=== PATIENT | male | born 1955 | race Caucasian/White ===

== ENCOUNTER 2018-12-02 07:18 | Outpatient (CLI) | payer BC, SELFPAY ==
[2018-12-02 08:40] LABS: Cholesterol 256 mg/dL (50-200); HDL Cholesterol 68 mg/dL (40-60); LDL CHOLESTEROL 171 mg/dL (<100); Triglyceride 54 mg/dL (30-150)
== END 2018-12-02 07:38 ==
PROVIDERS: PCP Family Medicine; Visit Provider Family Medicine
DX: E78.5 Hyperlipidemia, unspecified (principal)
CPT/HCPCS: 36415; 80061; 83721

== ENCOUNTER 2018-12-18 00:29 | Outpatient (CLI) | payer BC, SELFPAY ==
--- NOTE | 2018-12-18 11:42 | DI.MRI_ITS ---
SYMPTOMS/DIAGNOSIS: INJURY OF MENISCUS OF RIGHT KNEE, S83.8X1A, ICE SKATING INJURY 09/2018, ? MENISCAL TEAR MRI OF THE RIGHT KNEE: Routine noncontrast examination was performed. There is a tear of the body and posterior horn of the medial meniscus. The lateral meniscus is intact. The anterior cruciate, posterior cruciate, medial and lateral collateral ligaments, extensor mechanism and medial and lateral retinaculum are intact, as is the popliteus tendon. There is no focal fluid collection seen in the soft tissues. The articular cartilage is well maintained. There is marrow edema seen in the lateral aspect of the medial tibial plateau. Marrow signal is otherwise within normal limits. No evidence of an occult fracture or avascular necrosis is identified. There is a small amount of fluid in the joint space. The muscles show normal signal and size. IMPRESSION: 1. Tear of the body and posterior horn of the medial meniscus. 2. Contusion involving the medial tibial plateau.
== END 2018-12-18 00:49 ==
PROVIDERS: PCP Family Medicine; Visit Provider Specialist
DX: M25.561 Pain in right knee (principal); S83.8X1A Sprain of other specified parts of right knee, initial encounter; S83.241A Other tear of medial meniscus, current injury, right knee, initial encounter
CPT/HCPCS: 73721

== ENCOUNTER 2019-08-05 11:54 | Emergency (ER) | payer MEDICARE, SELFPAY ==
[2019-08-05 12:01] VITALS: BP 150/87; PULSE 65; RESP 18; TEMP 36.6; O2SAT 93
--- NOTE | 2019-08-05 12:27 | DI.RAD_ITS ---
EXAM: XR HAND LT COMPLETE INDICATION: pain, injury r/o FB or fx. COMPARISON: No exams were available for comparison TECHNIQUE: 2D digital imaging was performed. FINDINGS: No fracture, dislocation or radiopaque foreign body is seen. IMPRESSION: Negative left hand.
--- NOTE | 2019-08-05 12:28 | W.ED.GENAD ---
Discharge Plan Disposition Patient Disposition: HOME Condition: Good Discharge Details Chief Complaint: Laceration Clinical Impression: Hand laceration Primary Care Provider: Scout Padilla ED Provider: Allison Cage Home Meds and New Rx's Prescriptions: No Action glucosamine sulfate 2KCl 1,000 MG capsule 1,000 mg PO DAILY RF: 0 Saw [place] Extract (w-zinc) 1 EACH capsule 1 ea PO DAILY RF: 0 tamsulosin 0.4 MG capsule 0.4 mg PO DAILY Qty: 30 RF: 6 Dany Multivitamin For Men 1 EACH tablet 1 ea PO DAILY RF: 0 Discharge Instructions Instructions: Laceration (ED) Additional Instructions: Leave initial dressing in place for the next 24 hours then you may remove and begin wound care. Wash area with soap and water gently once or twice daily. Pat dry completely after washing or air dry. Apply topical antibiotic ointment over the wound. Change dressings once or twice daily. Observe for any signs of infection. Suture removal in 10 to 14 days. Return for any signs of infection, pain, worsening or concerns sooner if needed. Follow-up with orthopedic doctor for reevaluation if any numbness is persistent as discussed. Referrals: Carlos Ricketts MD [ [facility] STAFF PHYSICIAN] - Medical Decision Making 64-year-old man presents after his hand got stuck in a external grinder tender. Patient presents with a dorsal hand laceration approximately 4 cm in length which is jagged and irregular mildly contaminated. Patient's injury occurred prior to arrival. Tetanus in 2018 is up-to-date. Patient's bleeding is controlled. X-ray ordered to rule out bony involvement or foreign body which is retained. Patient does have a mild lack of two-point discrimination over the dorsal aspect of the hand between the webspace of the first and second finger. No loss of two-point discrimination through the digits. Concern of possible nerve injury at the site. Full range of motion. Patient anesthetized locally with lidocaine and bupivacaine 0.5%. Wound irrigated. Wound edges revitalized. 7 sutures to close the wound. No persistent bleeding. Wound edges well approximated. Counseled regarding appropriate wound management and care. The patient was stable and requested discharge. Prior to discharge, my usual and customary return precautions were reviewed with the patient - this included follow-up instructions and reasons to return to the Emergency Department if conditions worsens, does not improve as expected, or other new concerns arise. HPI General Date/Time Provider Initiated Documentation: 08/05/19 12:20. HPI Narrative: 64-year-old right-handed man presents for left hand laceration. Patient cut his hand in a glove caught in a external grinder tender and ultimately sustained a dorsal hand laceration. Patient reports pain at the site. Tetanus is unknown. Denies numbness, tingling or weakness associated. Full range of motion of the hand. Bleeding initially now controlled. Tetanus is unknown. No other sites of pain or concerns at this time. injury occurred prior to arrival Related Data Home Medications Medication Instructions Recorded Confirmed glucosamine sulfate 2KCl 1,000 mg PO DAILY 02/04/14 08/05/19 Saw [place] Extract (w-zinc) 1 ea PO DAILY 05/17/15 08/05/19 [id number] 1 ea PO DAILY tab-cap 09/23/17 08/05/19 [Dany Multi For Men Tablet] tamsulosin 0.4 mg PO DAILY #30 tab-cap 09/23/17 08/05/19 Previous Rx's Medication Instructions Recorded tamsulosin 0.4 mg PO DAILY #30 tab-cap 09/23/17 Allergies Allergy/AdvReac Type Severity Reaction Status Date / Time cats Allergy runny Uncoded 08/05/19 12:03 eyes, congestion General Stated Complaint: Laceration AKBAR: 3 Review of Systems Review of Systems ROS Unobtainable: All systems reviewed & are unremarkable except as noted in HPI and below Musculoskeletal Musculoskeletal: Denies deformity, Denies limited range of motion, Denies numbness and Denies tingling Integumentary/Breasts Skin/Breast: Reports wounds Neurologic Neurologic: Denies numbness and Denies tingling [facility] Medical History BPH (benign prostatic hypertrophy) Surgical History Appendectomy Arthroplasty of knee (01/04/16) Oj Ramirez MD Left knee; Arthroscopic partial medial menisectomy; chrondoplasty of the medial femoral condyle and femoral rochlea; Excision of a parameniscal cyst; Lysis of adhesions in the suprapatellar pouch. 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 Well hydrated. Alert and alert. MUSCULOSKELETAL: Normal Gait. FROM of all extremities. Mild pain with palpation of the hand overlying laceration on the dorsal hand. Flexion extension intact in all digits. No obvious tendon rupture. Distal neurovascularly intact through the hand. SKIN: Normal. Dry. No rashes. Laceration to the dorsal aspect of the hand approximately 4 cm which is jagged and irregular with mild avulsion of tissue. NEURO: Alert and awake. Speech clear. PSYCH: Normal affect. Cooperative. Course Vital Signs Vital signs: Vital Signs Temperature 36.6 C 08/05/19 12:01 Pulse 65 08/05/19 12:01 Respiratory Rate 18 08/05/19 12:01 Blood Pressure 150/87 H 08/05/19 12:01 Pulse Oximetry 93 L 08/05/19 12:01 Temperature 36.6 C 08/05/19 12:01 Temperature Source Temporal Artery Scan 08/05/19 12:01 Pulse 65 08/05/19 12:01 Respiratory Rate 18 08/05/19 12:01 Blood Pressure 150/87 H 08/05/19 12:01 Blood Pressure Position Sitting 08/05/19 12:01 Pulse Oximetry 93 L 08/05/19 12:01 Oxygen Delivery Method Room Air 08/05/19 12:01 Oxygen Flow Rate 0 08/05/19 12:01 Pain Level 5 08/05/19 12:01 Procedures Laceration Laceration 1: Site: hand Side (If applicable): left Size (cm): 4 Description: irregular and contaminated Depth: simple, single layer Local Anesthetic: Lidocaine 1% and Bupivicaine 0.5% Amount of anesthesia used (mL): 5 Pre-repair: wound explored, irrigated extensively and wound margins revised Skin layer closed with: other (prolene) Size (cm): 4-0 Number of sutures: 7 Technique: simple, interrupted
== END 2019-08-05 14:35 | disposition home or self-care (01) ==
PROVIDERS: Emergency Provider Physician Assistant; PCP Family Medicine
DX: S61.412A Laceration without foreign body of left hand, initial encounter (principal); W31.81XA Contact with recreational machinery, initial encounter
CPT/HCPCS: 12002; 99283; 73130; 99282

== ENCOUNTER 2019-08-19 08:49 | Emergency (ER) | payer MEDICARE, SELFPAY ==
--- NOTE | 2019-08-19 08:52 | W.ED.GENAD ---
Discharge Plan Disposition Patient Disposition: HOME Condition: Stable Discharge Details Chief Complaint: SutureRem Clinical Impression: Visit for suture removal Primary Care Provider: Scout Padilla ED Provider: Bay Fletcher Home Meds and New Rx's Prescriptions: Continued glucosamine sulfate 2KCl 1,000 MG capsule 1,000 mg PO DAILY RF: 0 Saw [place] Extract (w-zinc) 1 EACH capsule 1 ea PO DAILY RF: 0 tamsulosin 0.4 MG capsule 0.4 mg PO DAILY Qty: 30 RF: 6 Dany Multivitamin For Men 1 EACH tablet 1 ea PO DAILY RF: 0 Discharge Instructions Instructions: Stitches Removal (ED) Additional Instructions: Return for any acute concern. Continue your regular medications. May resume normal routine and activities. Medical Decision Making Patient presents for uneventful suture removal. The left hand is healing well. His exam is otherwise unremarkable. Sutures removed and patient stable for discharge. HPI General Mode of arrival: ambulatory. Date/Time Provider Initiated Documentation: 08/19/19 08:49. Limitations to Documentation: no limitations. Information obtained by: patient. History of Present Illness 64 year old M presents to the emergency department with the chief complaint of Suture removal, no other complaint, Related Data Home Medications Medication Instructions Recorded Confirmed glucosamine sulfate 2KCl 1,000 mg PO DAILY 02/04/14 08/05/19 Saw [place] Extract (w-zinc) 1 ea PO DAILY 05/17/15 08/05/19 Dany Multivitamin For Men 1 ea PO DAILY tab-cap 09/23/17 08/05/19 tamsulosin 0.4 mg PO DAILY #30 tab-cap 09/23/17 08/05/19 Previous Rx's Medication Instructions Recorded tamsulosin 0.4 mg PO DAILY #30 tab-cap 09/23/17 Allergies Allergy/AdvReac Type Severity Reaction Status Date / Time cats Allergy runny Uncoded 08/05/19 12:03 eyes, congestion General AKBAR: 3 PFSH Social History Smoking/Tobacco Use Status: Never Alcohol Intake: current Alcohol Intake frequency: a few times a month Alcohol type: wine Drug use: Never Adopted: No Household members: spouse Housing: house Number of Children: 5 number of grandchildren: 6 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 Full range of motion, sensation intact distally.. No erythema or discharge from the wound.
[2019-08-19 09:01] VITALS: BP 100/68; PULSE 60; RESP 15; TEMP 36.8; O2SAT 98
== END 2019-08-19 09:01 | disposition home or self-care (01) ==
PROVIDERS: Emergency Provider Emergency Medicine; PCP Family Medicine
DX: S61.412D Laceration without foreign body of left hand, subsequent encounter (principal); W45.8XXD Other foreign body or object entering through skin, subsequent encounter; Z48.02 Encounter for removal of sutures

== ENCOUNTER 2020-11-03 02:51 | Outpatient (CLI) | payer MEDICARE, SELFPAY ==
[2020-11-03 09:02] LABS: Abs Immature Grans 0.01 10^3/uL (0.0-0.06); Absolute Basophil Count 0.01 10^3/uL (0.0-0.2); Absolute Eosinophil Count 0.07 10^3/uL (0.0-0.7); Absolute Lymphocyte Count 1.77 10^3/uL (1.2-3.4); Absolute Monocyte Count 0.57 10^3/uL (0.1-0.8); Basophils % 0.2; Eosinophils % 1.3; HCT 47.8 % (40.0-50.0); HGB 15.9 g/dL (13.5-17.5); Immature Grans % 0.2; MCH 31.6 pg (27.0-33.0); MCHC 33.3 % (32.0-36.0); MPV 9.8 fL (8.0-11.0); Monocytes % 10.3; Nucleated RBC 0 %; Platelet Count 179 10^3/uL (130-400); RBC 5.03 10^6/uL (4.36-5.78); RDW 12.3 % (11.8-14.1); RDW-SD 43.1 fL; WBC 5.53 10^3/uL (4.4-10.8)
[2020-11-03 09:50] LABS: ALT 45 U/L (16-63); AST 24 U/L (15-37); Albumin 3.8 g/dL (3.4-5.0); Alkaline Phosphatase 64 U/L (46-116); Anion Gap 7.9 mmol/L (3-11); BUN 20 mg/dL (7-18); Bilirubin, Total 0.6 mg/dL (0.2-1.0); CO2 27.1 mmol/L (21.0-32.0); CREATININE 0.84 mg/dL (0.70-1.30); Calcium 8.6 mg/dL (8.5-10.1); Calculated LDL 193 mg/dL (<100); Chloride 104 mmol/L (98-107); Cholesterol 268 mg/dL (<200); Glucose 104 mg/dL (74-106); HDL Cholesterol 66 mg/dL (40-60); Potassium 4.4 mmol/L (3.5-5.1); Sodium 139 mmol/L (136-145); Total Protein 7.4 g/dL (6.4-8.2); Triglyceride 49 mg/dL (<150)
== END 2020-11-03 03:11 ==
PROVIDERS: PCP Family Medicine; Visit Provider Family Medicine
DX: E78.5 Hyperlipidemia, unspecified (principal); G47.33 Obstructive sleep apnea (adult) (pediatric)
CPT/HCPCS: 36415; 80053; 80061; 85025

== ENCOUNTER 2023-03-13 00:25 | Outpatient (CLI) | payer MEDICARE, SELFPAY ==
--- NOTE | 2023-03-13 07:00 | DI.RAD_ITS ---
Exam(s) XR KNEE RT 3V AP,LAT,DADA EXAM: XR KNEE RT 3V AP,LAT,DADA CLINICAL HISTORY: Worsening arthritis,m17.11. TECHNIQUE: 2D digital imaging was performed. Three views. COMPARISON: No exams were available for comparison FINDINGS: BONES: No acute fracture is present. No bony destructive lesion is seen. JOINTS: Severe narrowing medial femoral tibial joint space. Periarticular spurring. Mild lateral ren bluxation of the tibia with respect to the distal femur. Spurring at the articular aspect of the pat li. Question of a small joint effusion SOFT TISSUE: Normal. IMPRESSION: Severe degenerative changes medial femoral tibial joint. DATA REPOSITORY: RADIATION DOSE DELIVERED:
== END 2023-03-13 00:45 ==
PROVIDERS: PCP Family Medicine; Visit Provider Family Medicine
DX: M17.11 Unilateral primary osteoarthritis, right knee (principal)
CPT/HCPCS: 73562

== ENCOUNTER 2023-03-22 01:46 | Outpatient (CLI) | payer MEDICARE, SELFPAY ==
[2023-03-22 09:37] LABS: ALT 40 U/L (16-63); AST 33 U/L (15-37); Albumin 3.6 g/dL (3.4-5.0); Alkaline Phosphatase 61 U/L (46-116); Anion Gap 6.5 mmol/L (3-11); BUN 16 mg/dL (7-18); Bilirubin, Total 0.6 mg/dL (0.2-1.0); CO2 28.5 mmol/L (21.0-32.0); CREATININE 0.7 mg/dL (0.70-1.30); Calcium 8.5 mg/dL (8.5-10.1); Calculated LDL 165 mg/dL (<100); Chloride 104 mmol/L (98-107); Cholesterol 236 mg/dL (<200); Estimated GFR 100.37 (mL/min/1.73m2); Glucose 109 mg/dL (74-106); HDL Cholesterol 66 mg/dL (40-60); Potassium 4.1 mmol/L (3.5-5.1); Sodium 139 mmol/L (136-145); Total Protein 7.6 g/dL (6.4-8.2); Triglyceride 29 mg/dL (<150)
== END 2023-03-22 01:47 | disposition home or self-care (01) ==
LOC: LBO 01:46
PROVIDERS: PCP Family Medicine; Visit Provider Family Medicine
DX: E78.5 Hyperlipidemia, unspecified (principal)
CPT/HCPCS: 36415; 80053; 80061

== ENCOUNTER → 2023-06-24 09:24 | Outpatient (BNVA) | payer MEDICARE, SELFPAY | PROVIDERS: PCP Family Medicine; Referring Provider Family Medicine; Visit Provider Student in an Organized Health Care Education/Training Program | DX: M17.11 Unilateral primary osteoarthritis, right knee (principal) | CPT/HCPCS: 99202 ==

== ENCOUNTER → 2024-01-27 08:47 | Outpatient (BNVA) | payer MEDICARE, SELFPAY | PROVIDERS: PCP Nurse Practitioner Family; Referring Provider Family Medicine; Visit Provider Student in an Organized Health Care Education/Training Program | DX: M16.12 Unilateral primary osteoarthritis, left hip (principal) | CPT/HCPCS: 20611; J1040 ==

== ENCOUNTER 2024-01-29 11:51 | Outpatient (REF) | payer MEDICARE, SELFPAY ==
[2024-01-29 21:30] LABS: ALT 42 U/L (16-63); AST 26 U/L (15-37); Albumin 3.8 g/dL (3.4-5.0); Alkaline Phosphatase 67 U/L (46-116); Anion Gap 9.5 mmol/L (3-11); BUN 26 mg/dL (7-18); Bilirubin, Total 0.6 mg/dL (0.2-1.0); CO2 27.5 mmol/L (21.0-32.0); CREATININE 0.7 mg/dL (0.70-1.30); Calcium 8.8 mg/dL (8.5-10.1); Chloride 102 mmol/L (98-107); Estimated GFR 99.74 (mL/min/1.73m2); Glucose 113 mg/dL (74-106); Potassium 3.9 mmol/L (3.5-5.1); Sodium 139 mmol/L (136-145); Total Protein 7.6 g/dL (6.4-8.2)
[2024-01-29 21:37] LABS: Hemoglobin A1C 5.9 % (<5.7)
[2024-01-29 21:58] LABS: Calculated LDL 169 mg/dL (<100); Cholesterol 264 mg/dL (<200); HDL Cholesterol 70 mg/dL (40-60); Triglyceride 127 mg/dL (<150)
[2024-01-30 17:32] LABS: PSA, Screening 5.8 ng/mL (<=4.5)
== END 2024-01-29 11:52 | disposition home or self-care (01) ==
LOC: LBN 11:51
PROVIDERS: PCP Nurse Practitioner Family; Visit Provider Nurse Practitioner Family
DX: E78.5 Hyperlipidemia, unspecified (principal); R73.9 Hyperglycemia, unspecified; N40.0 Benign prostatic hyperplasia without lower urinary tract symptoms
CPT/HCPCS: 80053; 80061; 84153; 83036

== ENCOUNTER 2024-02-04 04:49 | Outpatient (CLI) | payer MEDICARE, SELFPAY ==
[2024-02-07 10:16] LABS: Apolipoprotein A1, S 187 mg/dL (>=120); Apolipoprotein B, S 135 mg/dL (See Comment); Apolipoprotein B/A 1 ratio 0.7 (See Comment)
== END 2024-02-04 04:50 | disposition home or self-care (01) ==
LOC: LOS 04:49
PROVIDERS: PCP Nurse Practitioner Family; Visit Provider Nurse Practitioner Family
DX: E78.5 Hyperlipidemia, unspecified (principal)
CPT/HCPCS: 36415; 80061; 82172; 82664

== ENCOUNTER 2024-02-12 08:50 | Outpatient (CLI) | payer MEDICARE, SELFPAY ==
[2024-02-18 08:42] LABS: Apolipoprotein B, Serum 133 mg/dL; Beta VLDL Cholesterol Not Detected mg/dL (<15); Beta VLDL Triglycerides Not Detected mg/dL (<15); Cholesterol, Total, CDC 265 mg/dL; Chylomicron Cholesterol Not Detected; Chylomicron Triglycerides Not Detected; HDL Cholesterol, CDC 60 mg/dL (>=40); LDL Cholesterol 183 mg/dL; LDL Triglycerides 24 mg/dL (<=50); Lp(a) Cholesterol 13 mg/dL (<5); LpX Not detected; Triglycerides, CDC 55 mg/dL; VLDL Cholesterol 9 mg/dL (<30); VLDL Triglycerides 20 mg/dL (<120)
== END 2024-02-12 08:51 | disposition home or self-care (01) ==
LOC: LBO 08:57
PROVIDERS: PCP Nurse Practitioner Family; Visit Provider Nurse Practitioner Family
DX: E78.5 Hyperlipidemia, unspecified (principal)
CPT/HCPCS: 80061; 82172; 82664

== ENCOUNTER → 2024-03-03 02:19 | Outpatient (CLI) | payer MEDICARE, SELFPAY ==
--- NOTE | 2024-03-03 08:00 | DI.MRI_ITS ---
Exam(s) MR LOWER JOINT LT WO EXAM: MR LOWER JOINT LT WO CLINICAL HISTORY: L HIP PAIN,OA LT HIP, M16.12 TECHNIQUE: Multiplanar multisequence MRI of Pelvis was performed COMPARISON: CR HIP from 11/25/2023 FINDINGS: Bones: There is no fracture or contusion pattern. There are severe degenerative changes of the left hip. There is high signal the superior left femoral head is well as adjacent acetabulum. There is degenerative edema on both sides of the joint. There is severe cartilage thinning, extending down to bone. There is slight flattening of the superior femoral head. A joint effusion is present. There are moderate degenerative changes of the right hip. Few small subchondral cysts are noted in th e acetabulum. Degenerative changes are noted in the acetabulum and labrum. No joint effusion. Mild degenerative changes are seen in the SI joints and pubic symphysis. Musculotendinous structures: Musculotendinous structures demonstrate no abnormality. Intrapelvic structures: Enlarged prostate. Urinary bladder shows mild wall thickening as well as trab eculation. IMPRESSION: Severe degenerative changes of the left hip, with marked cartilage thinning extending down to involvi ng underlying bone as well as marked small acetabular spurring. Slight flattening of the femoral head . Moderate degenerative changes of the right hip. DATA REPOSITORY:
== END ==
PROVIDERS: PCP Nurse Practitioner Family; Visit Provider Student in an Organized Health Care Education/Training Program
DX: M16.12 Unilateral primary osteoarthritis, left hip (principal)
CPT/HCPCS: 73721

== ENCOUNTER 2024-04-14 04:59 | Outpatient (CLI) | payer MEDICARE, SELFPAY ==
[2024-04-14 11:28] LABS: MCH 32.3 pg (27.0-33.0); MCHC 34.1 % (32.0-36.0); MCV 95 fL (80-95); MPV 9.6 fL (8.0-11.0); Platelet Count 179 10^3/uL (130-400); RBC 4.65 10^6/uL (4.36-5.78); RDW 12.5 % (11.8-14.1); RDW-SD 43.5 fL; WBC 7.31 10^3/uL (4.4-10.8)
[2024-04-14 11:57] LABS: Anion Gap 8.6 mmol/L (3-11); BUN 17 mg/dL (7-18); CO2 28.4 mmol/L (21.0-32.0); CREATININE 0.8 mg/dL (0.70-1.30); Chloride 102 mmol/L (98-107); Glucose 112 mg/dL (74-106); Potassium 4.2 mmol/L (3.5-5.1); Sodium 139 mmol/L (136-145)
== END 2024-04-14 05:00 | disposition home or self-care (01) ==
LOC: LBO 04:59
PROVIDERS: PCP Nurse Practitioner Family; Visit Provider Student in an Organized Health Care Education/Training Program
DX: Z01.818 Encounter for other preprocedural examination; M16.12 Unilateral primary osteoarthritis, left hip
CPT/HCPCS: 36415; 80048; 85027; 72170

== ENCOUNTER 2024-04-14 13:53 | Outpatient (CLI) | payer MEDICARE, SELFPAY ==
--- NOTE | 2024-04-14 10:49 | DI.RAD_ITS ---
Exam(s) XR PELVIS AP EXAM: XR PELVIS AP CLINICAL HISTORY: OA L HIP. TECHNIQUE: 2D digital imaging was performed. COMPARISON: No exams were available for comparison FINDINGS: Single AP supine view. No pelvic nor hip fractures. However, there is advanced uniform narrowing of the hip joint space on the left side. Milder narrowing on the right. IMPRESSION: Advanced osteoarthritic degenerative narrowing of the left hip joint. DATA REPOSITORY: RADIATION DOSE DELIVERED:
== END 2024-04-14 13:54 | disposition home or self-care (01) ==
LOC: DIORS 13:59
PROVIDERS: PCP Nurse Practitioner Family; Visit Provider Physician Assistant
DX: M16.12 Unilateral primary osteoarthritis, left hip (principal); Z01.818 Encounter for other preprocedural examination
CPT/HCPCS: 72170

== ENCOUNTER 2024-04-29 06:00 | Day surgery (SDC) | payer MEDICARE, SELFPAY ==
[2024-04-29] VITALS (12 sets, daily range): BP systolic 111–172; BP diastolic 68–102; PULSE 55–86; RESP 9–18; TEMP 36.4–36.6; O2SAT 93–98; BMI 26.2
[2024-04-29] MEDS: Lactated Ringers 1,000 ML 80 ML IV (06:49)
[2024-04-29] MEDS: Celecoxib 200 MG CAP 400 MG PO (06:50)
[2024-04-29] MEDS: Acetaminophen 500 MG TAB 1000 MG PO (06:50)
--- NOTE | 2024-04-29 06:55 | ANES.PREOP_ITS ---
General Info Date of Service Date Performed: 04/29/24 Height: 5 ft 7 in Weight: 75.8 kg Body Mass Index (BMI): 26.2 Surgical Procedure: Operation Date: 04/29/24 07:50 Proposed Procedure Side Surgeon p Hip Total Hip Anterior Left Pan Yadav MD Meds Allergies and Home Medications Allergies Allergy/AdvReac Type Severity Reaction Status Date / Time No Known Allergies Allergy Verified 04/29/24 06:11 Home Medication Medication Instructions Recorded saw palmetto 160 mg capsule 160 mg PO BID 03/12/23 omega-3 fatty acids 1,000 mg 1,500 mg PO DAILY 01/27/24 capsule tamsulosin 0.4 mg capsule 0.4 mg PO DAILY #90 tab-caps 01/29/24 zinc gluconate 30 mg tablet 30 mg PO BID 04/10/24 magnesium citrate 125 mg capsule 150 mg PO HS 04/28/24 magnesium glycinate 240 mg PO DAILY 04/28/24 acetaminophen 500 mg tablet 1,000 mg (2 x 500 mg) PO TID #90 04/29/24 tabs aspirin 81 mg tablet,delayed 81 mg PO BID #60 tabs 04/29/24 release celecoxib 200 mg capsule 200 mg PO BID #60 caps 04/29/24 dexamethasone 4 mg tablet 4 mg PO DAILY #2 tabs 04/29/24 oxycodone 5 mg tablet 5 mg PO Q4H PRN pain #20 tabs 04/29/24 pantoprazole 40 mg tablet,delayed 40 mg PO DAILY #30 tabs 04/29/24 release Current Visit Medications: Current Medications Generic Name Dose Route Start Last Admin Trade Name Natalya PRN Reason Stop Dose Admin Acetaminophen 1,000 mg 04/29/24 06:00 04/29/24 06:50 Acetaminophen 500 Mg Tab PO 04/29/24 16:00 1,000 mg PREOP JEISON Administration Celecoxib 400 mg 04/29/24 06:00 04/29/24 06:50 Celecoxib 200 Mg Cap PO 04/29/24 16:00 400 mg PREOP JEISON Administration Ringer's Solution 1,000 mls @ 80 mls/hr 04/29/24 06:00 04/29/24 06:49 IV 05/28/24 23:59 80 mls/hr INFUSION JEISON Administration Cefazolin Sodium/Dextrose 2 gm in 50 mls @ 100 mls/hr 04/29/24 06:00 Ancef Duplex IVPB 04/29/24 16:00 PREOP JEISON Tranexamic Acid/Sodium Chloride 1,000 mg in 100 mls @ 600 mls/hr 04/29/24 06:00 IVPB 04/29/24 16:00 PREOP JEISON IV Miscellaneous Supplies 1 each 04/29/24 06:00 Iv Access IV 05/28/24 23:59 DIRECTED JEISON Sodium Chloride 0 ml 04/29/24 06:00 Normal Saline Flush 10 Ml Syr IV 05/28/24 23:59 PRN PRN Sodium Chloride 0 ml 04/29/24 06:00 Normal Saline 10 Ml Vial IJ 05/28/24 23:59 DIRECTED PRN Sterile Water 0 ml 04/29/24 06:00 Water,Injection,Sterile 10 Ml Vial IJ 05/28/24 23:59 DIRECTED PRN PFSH Active Problems Active Problems: Problem Status Onset Code Injury of tympanic membrane of right ear S09.301A Hyperglycemia R73.9 Osteoarthritis of left hip M16.12 Localized osteoarthritis of right knee M17.11 Rotator cuff disorder M67.919 Hyperlipidemia E78.5 Verruca vulgaris B07.8 Tennis elbow M77.10 Primary osteoarthritis of left knee 03/06/16 M17.12 Other and unspecified hyperlipidemia 12/26/01 E78.5 Obstructive sleep apnea 09/25/16 G47.33 BPH w/o urinary obs/LUTS 02/25/09 N40.0 Actinic keratosis 02/25/09 L57.0 Medical History Medical History BCC (basal cell carcinoma) (~09/2019) left angle of jaw, left upper back, right upper chest Ricci's disease of left shoulder (~02/2022) H/O actinic keratosis hands/shoulders/back - 6m f/u with Dr Alexander 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 Status post arthroscopy of right knee Vasectomy Repair of inguinal hernia (10/11/15) Bilateral Colonoscopy - IV Sedation Appendectomy Tobacco Smoking/Tobacco Use Status: Never Passive smoking exposure: No Alcohol Alcohol Intake: current Alcohol intake frequency: a few times a week Alcohol type: beer, wine and hard liquor Substance Use Substance use: Never Substance use type: does not use Vital Signs and Lab Results Vital Signs Most Recent Vital Signs in EMR: Most Recent Vital Signs Temp Pulse Resp BP Pulse Ox 36.6 C 67 16 170/92 H 96 04/29/24 06:44 04/29/24 06:44 04/29/24 06:44 04/29/24 06:44 04/29/24 06:44 Lab Results Blood Type / Crossmatch: No Data to Display Complete Blood Count: White Blood Count 7.31 10^3/uL (4.4-10.8) 04/14/24 11:20 Red Blood Count 4.65 10^6/uL (4.36-5.78) 04/14/24 11:20 Hemoglobin 15.0 g/dL (13.5-17.5) 04/14/24 11:20 Hematocrit 44.0 % (40.0-50.0) 04/14/24 11:20 Platelet Count 179 10^3/uL (130-400) 04/14/24 11:20 Complete Metabolic Panel: Sodium 139 mmol/L (136-145) 04/14/24 11:20 Potassium 4.2 mmol/L (3.5-5.1) 04/14/24 11:20 Chloride 102 mmol/L (98-107) 04/14/24 11:20 Carbon Dioxide 28.4 mmol/L (21.0-32.0) 04/14/24 11:20 BUN 17 mg/dL (7-18) 04/14/24 11:20 Creatinine 0.8 mg/dL (0.70-1.30) 04/14/24 11:20 Est GFR (CKD-EPI 2020) 95.80 (mL/min/1.73m2) 04/14/24 11:20 Calcium 9.0 mg/dL (8.5-10.1) 04/14/24 11:20 Glucose 112 mg/dL (74-106) H 04/14/24 11:20 Liver Function Panel: No Data to Display Coagulation Panel: No Data to Display Cardiac Panel: No Data to Display Arterial Blood Gas: No Data to Display Venous Blood Gas: No Data to Display Pancreas Panel: No Data to Display Thyroid Panel: No Data to Display Infectious Disease: No Data to Display Blood Cultures: No Data to Display Toxicology Panel: No Data to Display Anesthesia Assessment and Plan Anesthesia History Personal History: No History of Anesthesia Complications Family History: No Family History of Anesthesia Complications Exercise Tolerance Exercise Tolerance: Metabolic Equivalents>4 Pertinent Negatives Pertinent Negatives: No Symptoms of GERD, No Major Cardiovascular Symptoms or Complaints, No Major Pulmonary Symptoms or Complaints and No History of CVA/TIA Cardiac & Pulmonary Exam Cardiac Exam: Normal S1/S2 Heart Sounds Pulmonary Exam: Clear Bilateral Breath Sounds Implantable Cardiac Device Does patient have a Pacemaker or an ICD?: No Airway Exam Known Difficult Airway: No Mallampati Class: 2 Mouth Opening: Normal (> 3cm) Thyromental Distance: Greater than 3 cm Neck Range of Motion: Full ROM Neck Circumference: Normal Teeth Condition: Normal Dentition ASA Classification ASA Score: ASA 2 Emergency Case?: No NPO Status NPO Status: NPO Clears >2 hours, Solids >8 hours Anesthesia Plan Resuscitation Status: Full Code Anesthesia Technique: Spinal Anesthesia Airway Planned: Natural Airway Monitors Used: Standard Monitors Preoperative Comments:: lilly hearing aids
--- NOTE | 2024-04-29 07:17 | PDOC.DSDIS_ITS ---
Date of service: 04/29/24 Time of Service: 07:17 Discharge Plan Disposition Patient Disposition: Home Condition: Good Discharge Details Reason For Visit: L THR Attending Provider: Pan Yadav Primary Care Provider: Gaurang Contreras Home Meds and New Rx's Prescriptions: New celecoxib 200 mg capsule 200 mg PO BID Qty: 60 0RF aspirin 81 mg tablet,delayed release (DR/EC) 81 mg PO BID Qty: 60 0RF acetaminophen 500 mg tablet 1,000 mg PO TID Qty: 90 3RF pantoprazole 40 mg tablet,delayed release (DR/EC) 40 mg PO DAILY Qty: 30 0RF dexamethasone 4 mg tablet 4 mg PO DAILY Qty: 2 0RF oxycodone 5 mg tablet 5 mg PO Q4H MDD 6 tabs PRN (Reason: pain) Qty: 20 0RF Continued omega-3 fatty acids 1,000 mg capsule 1,500 mg PO DAILY tamsulosin 0.4 mg capsule 0.4 mg PO DAILY Qty: 90 3RF zinc gluconate 30 mg tablet 30 mg PO BID saw palmetto 160 mg capsule 160 mg PO BID Patient Comments: Unsure of actual dosage magnesium citrate 125 mg capsule 150 mg PO HS magnesium glycinate 118 mg magnesium capsule 240 mg PO DAILY Patient Comments: bottle says 2 capsules 240 mg Discharge Instructions Additional Instructions: Total Hip Discharge Instructions Activity: The most important activity is to walk. You should try to take short walks a few times a day. You have no restrictions on movement or positioning, but do not try to force what you do. You will find some stiffness and weakness with hip flexion (lifting your knee). Do not try to strengthen this too early, continue to practice walking and stairs and this will come. - Outpatient physical therapy can be helpful to help return you to a normal gait and improve your flexibility and strength. This can start around 2 weeks. For some patients, it?s not necessary. Usually this is determined at the time of discharge or at the first post-operative visit. - You should wear the SIMONE hose on both legs for 2 weeks. Dressing: Keep the surgical dressing in place for at least one week. After the first week it may be removed and replace with light gauze and tape or nothing. It may get wet after 3 days but avoid soaking the dressing. If it gets wet, just lightly pat dry. It is important to always keep some gauze between skin folds, especially when you are sitting. Spend some time with the wound exposed when you are lying flat as the incision does wrinkle onto itself. Medications: - You should take Tylenol and an anti-inflammatory Celebrex as your primary pain control medications. If the Celebrex is too expensive or not covered, please call the office for another alternative (Advil/Ibuprofen or Naproxen/Aleve). - You have been prescribed a stronger pain medication Oxycodone for breakthrough pain, take as needed as prescribed. - You have also been prescribed a stomach acid reduction agent Pantoprozole to help reduce stomach acid and reflux. - You have also been prescribed Decadron to help with post-operative nausea and pain. You will take this for two days starting tomorrow. - You will be taking Aspirin 81mg twice a day for DVT prevention unless instructed otherwise. - If you have constipation you should take Colace or Miralax (both [id number]). It takes most people 3-4 days to have a bowel movement. Follow-up: 2 weeks If you have any acute concerns or questions, please do not hesitate to contact the office at [phone]. You may contact Dr. Yadav with any questions after hours through the hospital at [phone] or on his cell phone at [phone]. Referrals: Pan Yadav MD [ [facility] STAFF PHYSICIAN] - Equipment/Supplies: Walker Activity:: Activity as Tolerated Shower/Bathe:: 72 hours Diet:: As Tolerated Discharge Orders Discharge Orders: Discharge Order (Routine); Ordered 04/29/24 Ordered By: Scott Castaneda DS: Diagnosis Discharge Diagnosis (1) Osteoarthritis of left hip: Status: Chronic
[2024-04-29] MEDS: ceFAZolin 2 GM/50 ML BAG IVPB (07:49)
[2024-04-29] MEDS: TRANEXAMIC ACID/SOD. CHL. 1,000 MG/100 ML BAG 600 MG IVPB (08:02)
--- NOTE | 2024-04-29 08:49 | DI.RAD_ITS ---
Exam(s) XR HIP LT IN OR EXAM: XR HIP LT IN OR CLINICAL HISTORY: Osteoarthritis of left hip. TECHNIQUE: 2D digital imaging was performed. COMPARISON: No exams were available for comparison FINDINGS: Fluoroscopy provided during left hip arthroplasty. See procedure report for details. Total fluoroscopy time 18.4 seconds IMPRESSION: Radiation exposure index/cumulative dose:claudette Newby= 1.7343 mGy DATA REPOSITORY: RADIATION DOSE DELIVERED:
--- NOTE | 2024-04-29 08:54 | ROE_ITS ---
Date of service: 04/29/24 Time of Service: 08:00 Operative Note Operative Note DATE OF PROCEDURE: 04/29/24 PRE-OP DIAGNOSIS: Left Hip Osteoarthritis POST-OP DIAGNOSIS: same PROCEDURE: Left Anterior Total Hip Arthroplasty with Intraoperative Navigation SURGEON: Pan Yadav ENGRAVER LETTERING: Scott Castaneda ANESTHESIA TYPE: Spinal Refer to Anesthesia Record ESTIMATED BLOOD LOSS: 100 PATHOLOGY: none sent TOURNIQUET TIME: 0 COMPLICATIONS: None Patient was transported to: PACU Patient's condition: stable Implants: 1. Depuy [place] Acetabular Component, 54mm 2. Depuy Acetabular Liner, [id number] 3. Depuy Actis Standard Collared Femoral Stem, Size 6 4. Depuy Altrx Ceramic Femoral Head, Size 36+8.5mm Indications: I have seen Bubba in clinic for symptoms of hip arthritis, confirmed with radiographic findings. He has exhausted nonoperative methods and was having significant limitations in daily function and desired better function and less pain. I discussed the technical details of a hip replacement. I explained the risks of the procedure to include, but not limited to, bleeding, infection, pain, stiffness, fracture, damage to nerves and vessels, damage to muscles and tendons, loosening, instability, leg length inequality, need for repeat proce dure, blood clot and cardiopulmonary demise. Despite these risks, Bubba elected to proceed. Findings: There was significant signs of arthritis throughout the hip with osteophytes and synovitis. Procedure Description: Bubba was greeted in the preoperative holding area where the correct side was identified and marked. The consent was reviewed with the patient and signed. The history and physical was updated. All questions were answered. Bubba was taken back to the operating room. A spinal anesthestic was then administered. The feet were wrapped with cast padding and Coban and then placed into the boot liners and then into the boots. Care was taken to protect the skin and make sure the heels were fully down and the boots were stable. The patient was then positioned onto the HANA table. Both legs were held in a neutral position. SCDs were applied. The patient was then slid down onto a peroneal post. Prophylactic antibiotics in the form of Cefazolin were administered. 1g of Tranxemic Acid was given intravenously within 30 minutes of incision. The left leg was then prepped with Chloraprep and draped in a standard fashion. A second prep with Chloraprep was performed prior to placement of a shower-curtain type drape with Iodine impregnated skin protection. A timeout to confirm correct identity, side and site, procedure, allergies, anesthesia, and medical concerns was performed. An obliquely oriented incision was made starting lateral to the ASIS and running distal over the Tensor Fascia Tisha (TFL) muscle belly toward the fibular head, approximately 10cm. The skin and soft tissue was dissected sharply, through Geovanni?s fascia, and to the fascia of the TFL. With the fascia and superior border of the IT band identified, the fascia was incised with a new knife just above any perforators from the IT band. The TFL muscle belly was bluntly dissected away from the fascia and moved laterally. The fat between TFL and rectus was identified to ensure the dissection was not within the TFL. Blunt dissection created space between abductors and the capsule and retractor was placed over the lateral femoral neck. The fibers of the rectus femoris tendon were identified and these were freed from the anterior capsule. A second cobra retractor was placed around the medial femoral neck. The TFL was further retracted laterally to show the deep fascia. Careful dissection through this layer identified three main crossing vessels of the lateral femoral circumflex. These were cauterized in multiple locations and then cut without any noticeable bleeding. The TFL was further released bluntly from the deep fascia to expose anterior hip capsule and fat The Asael orthopaedic retractor was then placed beneath the TFL and against sartorius and medial soft tissues to protect and retract the soft tissues. A T-capsulotomy was then performed starting at the superior lateral acetabulum and moving distally to the intertrochanteric ridge. These capsular flaps were tagged with a No. 1 Ethibond and elevated from within. The capsular flaps were released to the shoulder of the lateral neck and to the lesser trochanter to give excellent visualization of the proximal femur. A neck osteotomy was performed using an oscillating saw based on preoperative templates. This cut started in the shoulder and of the lateral neck and exited medially. The saw was at all times directed medially to avoid injury to the greater trochanter. Gross traction was applied to the leg and the osteotomy opened. The femoral head was removed with a corkscrew, making sure to protect the TFL on its exit. Traction was released after head removal. This was measured on the back table to determine the starting reamer size. Portions of the rectus obscuring visualization were minimally elevated off the superior acetabulum. An anterior retractor was placed over the anterior wall between capsule and labrum and attached to the Gripper retraction system. The femur was rotated to 90 degrees and medial capsule was fully released until the lesser trochanter was palpable and visible; the femur was returned to 30 degrees. A posterior retractor was placed similarly between capsule and labrum. This provided excellent visualization. The contents of the cotyloid fossa were removed with electrocautery and the labrum was removed with a knife. There was a notable floor osteophyte. There was significant chondromalacia of the superior acetabulum. Acetabular reaming began with a 50mm reamer. This first reaming was directed anterior to posterior and medial to get down to the true floor. This was inspected and reamed until the true floor was reached. The anterior retractor was then released and entry and exit was provided by traction on the capsular flaps. I then reamed sequentially up to a 54mm reamer where good fit was obtained. The larger reamers were oriented based on anatomical reference of the anterior and lateral lovelace to ensure proper abduction and anteversion. Positioning and size was confirmed with the fluoroscopy. A 54mm Depuy [place] acetabular component was selected. The acetabulum was reamed around the periphery with the selected acetabular size to prevent a rim fit. The deep tissues were irrigated. The acetabular component was then impacted in a position of about 40-45 degrees of abduction and 15-20 degrees of anteversion, using the patient?s anatomy as the ultimate landmark. Fluoroscopy was used to confirm this. There was excellent reuse technician of the acetabular component and the inserting handle was removed. The acetabular liner, Depuy [id number] polyethylene liner, was inserted and lined up with the tines of the acetabular component. There was no soft tissue interposition. The liner was then impacted into position and confirmed to be well-seated. A portion of the martha-articular cocktail was then injected around the acetabulum into the capsule and periosteum. This cocktail consisted of 123mg of Ropivacaine, 0.25mg of Epinephrine, 0.04mg of Clonidine, and 15mg of Ketorolac, diluted to 50cc. The leg was rotated to 120 degrees. Any remaining medial capsule was released until the lesser trochanter was easily palpable. A retractor was placed medially. The lateral capsule was further released into the shoulder to allow access to the greater trochanter. A Pedro retractor was placed over the greater trochanter which allowed the trochanter to flip in front of the capsule for excellent exposure. The leg was brought down into maximal extension and 20 degrees of adduction while ensuring there was no impingement on the acetabulum. Any remnant capsule within the trochanter was released. Piriformis and obturator externis were identified and protected. There was excellent access to the proximal femur. The lateral neck remnant was removed with a rongeur. A blunt canal probe was used to identify the canal and trajectory for later broaching. A box osteotome initiated the broach course. A small curved rasp and a curved curette were used to work laterally. Broaching then began with a starter Actis broach. This was inserted manually around the trochanter and into the canal before mallet blows. The broach was seated to a few millimeters below the cut level based on the neck cut and the preoperative template. Sequential broaching was continued with the Gaatu pneumatic broaching device until a tight fit was obtained with good rotational control of the femur. A trial standard neck was inserted along with a +8.5 trial head. The leg was brought out of extension and adduction and then reduced with traction and internal rotation. The leg was stable anteriorly in a position of 30 degrees of extension and 90 degrees of external rotation. Fluoroscopy was used to ensure there was no fracture and the stem was seated well. Leg lengths were checked with an AP pelvis and pelvic reference points. [employer] navigation system was used to confirm appropriate positioning and leg length and offset. Once content with the desired offset and leg lengths, the leg was brought back into extension, external rotation and adduction. The periosteum and surrounding tissue was injected with remaining portion of the martha-articular cocktail. The proximal femur was irrigated as well as the deep tissues. The [employer] standard collared stem, size 6, was then manually inserted into the proximal femur making sure to control rotation. It was then malleted into position with light blows, giving breaks to allow bone expansion and decrease risk of fracture. The selected Depuy Altrx Ceramic Head, size 36+8.5mm, was then placed onto the clean and dry trunnion and secured with impaction onto the tapered fit. The leg was brought back out of extension and adduction and reduced with traction and internal rotation. Stability was confirmed with no shuck at 90 degrees of external rotation and 30 degrees of extension. No impingement through range of motion arc. Final x-ray images were obtained with fluoroscopy to confirm adequate positioning and no intraoperative fracture. The deep tissues were thoroughly irrigated with Surgiphor, betadine solution. This was allowed to sit in the wound for 3 minutes before being thoroughly irrigated out with normal saline. The capsule was then reapproximated with the previously placed Ethibond sutures. The TFL fascia was finally closed with a No. 2 Stratafix, barbed suture. Deep tissues were then reapproximated with 0 Vicryl and a running 2-0 Vicryl. The skin was closed with a running 4-0 Monocryl in a subcuticular fashion. This was reinforced with skin glue. A Mepilex silver dressing was applied. At the end of the case, all counts were correct. Bubba was transferred to the hospital bed without difficulty and suffering no apparent complication. Bubba has a good prognosis. Physical therapy will start today and without restrictions, weight-bearing as tolerated. Aspirin 81mg BID will be used for DVT prophylaxis.
[2024-04-29] MEDS: oxyCODONE 5 MG TAB PO (10:51)
--- NOTE | 2024-04-29 11:42 | IN_ITS ---
PT Notes Visit Reasons: L THR Physical Therapy Day Surgery Initial Evaluation Date: 04/29/2024 Referring Doctor: ERNIE Geronimo PT Orders: PT CONSULT: S/p Ortho surgery Precautions: Per Dr. Yadav, WBAT on the left LE with AD. Patient Profile/Admitting Diagnosis: Mitchel is a 68-year-old male with degenerative joint disease of the left hip and is status post left total hip arthroplasty on postoperative day 0. PMHX: Medical History (Updated 04/13/24 @ 16:49 by China Hollingsworth) BCC (basal cell carcinoma) (~09/2019) left angle of jaw, left upper back, right upper chestBowen's disease of left shoulder (~02/2022) H/O actinic keratosis hands/shoulders/back - 6m f/u with Dr Hanleyquamous papilloma of soft palate (12/15/15) BPH (benign prostatic hypertrophy) Surgical History (Updated 04/14/24 @ 10:28 by China Hollingsworth) Status post arthroscopy of left knee Oj Ramirez MD Left knee; Arthroscopic partial medial menisectomy; chrondoplasty of the medial femoral condyle and femoral rochlea; Excision of a parameniscal cyst; Lysis of adhesions in the suprapatellar pouch. Status post arthroscopy of right knee Vasectomy Repair of inguinal hernia (10/11/15) BilateralColonoscopy - IV Sedation Appendectomy Social History/Home Situation: Lives with in a private home with 3 steps to enter with support on one side. Has a flight of steps to the second floor of the house where bed remains with support on both sides. Equipment Owned/DME: None Subjective: Complaining of burning pain on the left hip and thigh that subsided with ambulation activity. Objective: General Observation: Mepilex Ag over surgical incision. TEDS to be legs. Mental Status: A and O x 4 Pain: Reports burning pain on the left hip that subsided with ambulation activity ROM: Right Lower Extremity: Hip flexion WFL. Hip abduction WFL. Knee flexion WFL. Ankle dorsiflexion WFL. Ankle plantarflexion WFL. Left Lower Extremity: Hip flexion allows up to 100 degrees before inset of pain. Hip abduction WFL. Knee flexion WFL. Ankle dorsiflexion WFL. Ankle plantarflexion WFL. Strength: Right Lower Extremity: Hip flexors 5/5. Hip abductors 5/5. Knee flexors 5/5. Knee extensors 5/5. Ankle dorsiflexors 5/5. Ankle plantarflexors 5/5. Left Lower Extremity:Hip flexors 3-/5. Hip abductors 4-/5. Knee flexors 5/5. Knee extensors 4-/5. Ankle dorsiflexors 5/5. Ankle plantarflexors 5/5. Sensation: Intact as to pain and light pressure in bilateral lower extremities Bed Mobility/Transfers: Minimal cueing provided for use of B hands as needed for support, movement sequence, AD management, and posture to reduce fall risk and minimize pain report Supine to sit stand by assist Sit to stand stand by assist Stand to sit stand by assist Bed to chair stand by assist Gait: Facilitated safe and correct performance of level surface ambulation covering a distance of 150 feet using step through reciprocal gait pattern requiring standby assist using front-wheeled walker with minimal verbal cueing for limb movement sequence for safe gait pattern, AD management, and posture to reduce fall risk and minimize pain report. Stairs: Guided patient with safe and correct negotiation of 3 x 4 inch steps and 2 x 6 inch steps while holding onto bilateral rails with step to gait pattern requiring minimal assist with movement sequence, hand placement, and posture to reduce fall risk and minimize pain report. Balance: Static Sitting: Normal Dynamic Sitting: Normal Static Standing: Fair Dynamic Standing: Fair Special Tests: Mobility Limitations Standardized Measure [facility] AM-PAC 6 clicks Basic Mobility Inpatient Short Form: Raw Score: 23 CMS Score: 11% deficit Informed Consent/Education: Patient instructed in purpose of PT consult. Packet containing OLIMPIA exercise protocol has been given to patient. Education and training on initial set of exercises that can be done at home have been completed with patient. Trained patient with correct performance of exercises below to maximize motor control, joint flexibility, soft tissue extensibility of the L hip musculature to facilitate return to independent functional mobility performance. Access Code: [email or web address] URL: [email or web address] Date: 04/29/2024 Prepared by: Jessica Bruce Exercises - Gluteal Sets - 1 x daily - 7 x weekly - 1 sets - 10 reps - 5 hold - Supine Heel Slide - 1 x daily - 7 x weekly - 1 sets - 10 reps - 5 hold - Supine Ankle Pumps - 1 x daily - 7 x weekly - 1 sets - 10 reps - 5 hold - Seated March - 1 x daily - 7 x weekly - 1 sets - 10 reps - 5 hold - Seated Long Arc Quad - 1 x daily - 7 x weekly - 1 sets - 10 reps - 5 hold Assessment: Patient requires use of a front wheeled walker for symptoms most consistent despite this. Patient presents with clinical signs and symptoms consistent with current/admitting diagnoses that have resulted to mobility limitations, gait instability, generalized weakness, and impairment of motor control as demonstrated by the following impairment level findings: 1. Decreased strength to left hip major muscle groups 2. Impaired standing balance 3. Limitation of joint range of motion in left hip Impairments are contributing to the following functional limitations: 1. Inability to safely ambulate without assistive device 2. Increase completion time for mobility ADL performance 3. Increased fall risk Patient is assessed as a 03320 moderate complexity based on the following: History: 68-year-old male with impairment level findings, functional limitations, and past medical history as indicated above Examination: Demonstrable impairment in strength, balance, and mobility level with underlying impairments and functional limitations as documented above Presentation: Evolving Decision Makin moderate complaexity Goals: N/A. PT evaluation and 1-2 treatment sessions only for functional mobility training using recommended AD and for HEP instruction. Plan of Care/Treatment Plan: N/A. PT evaluation and 1-2 treatment session only for functional mobility training using recommended AD and for HEP instruction. DISCHARGE RECOMMENDATIONS: Home when medically cleared by orthopedic surgeon. Recommend outpatient PT services in order to optimize functional mobility outcomes and facilitate return to independent community ambulation without an assistive device. TREATMENT CODE/TIME: 60344 x 20 minutes for 1 unit, 93132 x 13 minutes for 1 unit (11:42-12:15). Thank you for the opportunity to participate in the care of this patient. Please sign an return this page within 30 days if you agree with the above POC. Thank you! Physician Signature Date [facility] Thank you for the opportunity to participate in the care of this patient. Jessica Bruce PT, DPT, CLT [facility] [place], [place] Gait
--- NOTE | 2024-04-29 13:36 | W.ANESPOSTOP ---
Postoperative Evaluation Date, Time and Location Date Performed: 04/29/24 Time Performed: 09:10 Patient Location: PACU Vital Signs Most Recent Imported Vital Signs: Most Recent Vital Signs Temp Pulse Resp BP Pulse Ox 36.4 C L 72 16 172/102 H 96 04/29/24 11:05 04/29/24 11:05 04/29/24 11:05 04/29/24 11:04/29/24 11:05 Pain Score Most Recent Pain Score: Most Recent Pain Score Pain Level 2 04/29/24 10:04 Assessment Mental Status: Awake (Alert & Oriented to Patient Baseline) Airway and Respiratory Function: Patent airway with normal (patient baseline) respiratory exam Cardiovascular Function: Hemodynamically Stable Hydration Status: Adequately Hydrated Nausea & Vomiting: No Nausea or Vomiting Pain: Pt. Denies Any Pain Peripheral Nerve Block: Regional nerve block not resolved at time of post operative discharge (Spinal wearing off appropaitly)
== END 2024-04-29 13:25 | disposition home or self-care (01) ==
PROVIDERS: PCP Nurse Practitioner Family; Visit Provider Student in an Organized Health Care Education/Training Program
PROC: (CPT 27130; principal; 2024-04-29 07:30)
DX: M16.12 Unilateral primary osteoarthritis, left hip (principal); E78.5 Hyperlipidemia, unspecified; R73.9 Hyperglycemia, unspecified; G47.33 Obstructive sleep apnea (adult) (pediatric); N40.0 Benign prostatic hyperplasia without lower urinary tract symptoms
CPT/HCPCS: 27130; 20985; 97162; 97530; 73501; C1776; J0690; J1100; J2250; J2401; J2405; J2704

== ENCOUNTER 2024-05-14 13:34 | Outpatient (CLI) | payer MEDICARE, SELFPAY ==
--- NOTE | 2024-05-14 09:17 | DI.RAD_ITS ---
Exam(s) XR HIP LT COMPLETE AP PELVIS EXAM: XR HIP LT COMPLETE AP PELVIS CLINICAL HISTORY: 1st post op S/P L OLIMPIA. TECHNIQUE: 2D digital imaging was performed. COMPARISON: CR XR PELVIS AP from 04/14/2024 FINDINGS: Two views: There has been interval left hip arthroplasty. DISH in alignment of the components of the recently placed left hip prosthesis are satisfactory. No fracture or loosening evident. No evidence of osteomyelitis. IMPRESSION: Stable satisfactory appearance. DATA REPOSITORY: RADIATION DOSE DELIVERED:
== END 2024-05-14 13:35 | disposition home or self-care (01) ==
LOC: DIORS 13:34
PROVIDERS: PCP Nurse Practitioner Family; Referring Provider Nurse Practitioner Family
DX: Z96.642 Presence of left artificial hip joint (principal); Z47.1 Aftercare following joint replacement surgery
CPT/HCPCS: 73502

== ENCOUNTER 2024-05-28 09:43 | Outpatient (REF) | payer MEDICARE, SELFPAY ==
[2024-05-28 22:00] LABS: COMMENT (LAB VIEW ONLY) 109.71 mg/dL; Microalb ug/mg Crea 36.6 ug/mg Cr
== END 2024-05-28 09:44 | disposition home or self-care (01) ==
LOC: LBN 09:43
PROVIDERS: PCP Nurse Practitioner Family; Visit Provider Nurse Practitioner Family
DX: R31.9 Hematuria, unspecified (principal)
CPT/HCPCS: 82043; 82570

== ENCOUNTER → 2024-06-11 08:47 | Outpatient (BNVA) | payer MEDICARE, SELFPAY | PROVIDERS: PCP Nurse Practitioner Family; Visit Provider Student in an Organized Health Care Education/Training Program | DX: Z96.642 Presence of left artificial hip joint (principal) ==

== ENCOUNTER 2024-06-15 04:18 | Outpatient (CLI) | payer MEDICARE, SELFPAY ==
[2024-06-15 12:45] LABS: Hemoglobin A1C 5.7 % (<5.7)
[2024-06-15 12:51] LABS: TSH (W/Ref FT4) 0.99 uIU/mL (0.36-3.74)
[2024-06-15 19:12] LABS: HIV-1/2 Ag & Ab Screen Negative (Negative)
[2024-06-15 19:17] LABS: Hepatitis C Ab w Rflx HCV PCR Negative (Negative)
[2024-06-27 14:56] LABS: Testosterone, Free 12.2 ng/dL (3.47-13.0); Testosterone, Total 621 ng/dL (240-950)
== END 2024-06-15 04:19 | disposition home or self-care (01) ==
LOC: LOS 04:18
PROVIDERS: PCP Nurse Practitioner Family; Visit Provider Nurse Practitioner Family
DX: Z11.59 Encounter for screening for other viral diseases (principal); N53.19 Other ejaculatory dysfunction; R73.9 Hyperglycemia, unspecified; Z11.4 Encounter for screening for human immunodeficiency virus [HIV]; E78.5 Hyperlipidemia, unspecified
CPT/HCPCS: 36415; 84402; 84403; 86803; 87389; 83036; 84443

== ENCOUNTER 2024-10-08 13:02 | Outpatient (CLI) | payer MEDICARE, SELFPAY ==
[2024-10-08 12:38] LABS: C-Reactive Protein < 0.50 mg/dL (<or=0.5)
[2024-10-13 17:14] LABS: HDL Particles 40 mcmol/L; LDL Cholesterol (NMR) 185 mg/dL; LDL Particles 2259 nmol/L
== END 2024-10-08 13:03 | disposition home or self-care (01) ==
LOC: LBO 13:03
PROVIDERS: PCP Nurse Practitioner Family; Visit Provider Nurse Practitioner Family
DX: E78.00 Pure hypercholesterolemia, unspecified (principal)
CPT/HCPCS: 36415; 83704; 86140

== ENCOUNTER 2025-04-29 08:58 | Outpatient (CLI) | payer MEDICARE, SELFPAY ==
--- NOTE | 2025-04-29 08:15 | DI.RAD_ITS ---
Exam(s) XR HIP LT AP LAT ONLY EXAM: XR HIP LT AP LAT ONLY CLINICAL HISTORY: ANNUAL F/U L OLIMPIA. TECHNIQUE: 2D digital imaging was performed. COMPARISON: CR XR HIP LT COMPLETE AP PELVIS from 05/14/2024 FINDINGS: Two views Again noted is a left hip prosthesis. No evidence of fracture nor loosening nor evidence of osteomyelitis. Bone density normal. No osseous lesions. IMPRESSION: Stable satisfactory appearance of the left hip prosthesis. DATA REPOSITORY: RADIATION DOSE DELIVERED:
== END 2025-04-29 08:59 | disposition home or self-care (01) ==
LOC: DIORS 08:59
PROVIDERS: PCP Nurse Practitioner Family; Visit Provider Physician Assistant
DX: Z47.1 Aftercare following joint replacement surgery (principal); Z96.642 Presence of left artificial hip joint
CPT/HCPCS: 99212; 73502

== ENCOUNTER 2025-06-04 01:07 | Outpatient (CLI) | payer MEDICARE, SELFPAY ==
[2025-06-04 12:37] LABS: ALT 38 U/L (16-63); AST 29 U/L (15-37); Albumin 3.7 g/dL (3.4-5.0); Alkaline Phosphatase 62 U/L (46-116); Anion Gap 10.6 mmol/L (3-11); BUN 19 mg/dL (7-18); Bilirubin, Total 0.8 mg/dL (0.2-1.0); CO2 26.4 mmol/L (21.0-32.0); Calcium 8.8 mg/dL (8.5-10.1); Chloride 105 mmol/L (98-107); Estimated GFR 99.12 (mL/min/1.73m2); Glucose 111 mg/dL (74-106); Potassium 4.2 mmol/L (3.5-5.1); Sodium 142 mmol/L (136-145); Total Protein 7.3 g/dL (6.4-8.2)
[2025-06-04 13:24] LABS: Glucose Negative (Negative)
[2025-06-04 19:09] LABS: PSA, Screening 6.9 ng/mL (<=6.5)
[2025-06-05 09:48] LABS: HIV-1/2 Ag & Ab Screen Negative (Negative)
[2025-06-07 10:50] LABS: HBs Antibody, Qual Negative (See Note); HBs Antibody, Quant <3.1 mIU/mL (See Note); Hepatitis C Ab w Rflx HCV PCR Negative (Negative)
== END 2025-06-04 01:08 | disposition home or self-care (01) ==
LOC: LOS 01:07
PROVIDERS: PCP Nurse Practitioner Family; Visit Provider Nurse Practitioner Family
DX: Z01.818 Encounter for other preprocedural examination (principal); Z12.5 Encounter for screening for malignant neoplasm of prostate; N53.19 Other ejaculatory dysfunction
CPT/HCPCS: 36415; 80053; 84153; 86704; 86706; 86803; 86850; 86900; 86901; 87340; 87389; 81003

== ENCOUNTER → 2025-07-15 14:32 | Outpatient (BNVA) | payer MEDICARE, SELFPAY | PROVIDERS: PCP Nurse Practitioner Family; Referring Provider Nurse Practitioner Family; Visit Provider Physical Therapy Assistant | DX: Z12.11 Encounter for screening for malignant neoplasm of colon (principal) | CPT/HCPCS: S0285 ==

== ENCOUNTER 2025-08-04 06:56 | Day surgery (SDC) | payer MEDICARE, SELFPAY ==
[2025-08-04 07:05] VITALS: BP 137/94; PULSE 73; RESP 16; TEMP 36.6; O2SAT 96
[2025-08-04] MEDS: Lactated Ringers 1,000 ML 80 ML IV (07:24)
--- NOTE | 2025-08-04 08:04 | W.ANESPRE ---
General Info Date of Service Date Performed: 08/04/25 Height: 5 ft 6 in Weight: 74 kg Body Mass Index (BMI): 26.3 Surgical Procedure: Operation Date: 08/04/25 08:35 Proposed Procedure Side Surgeon p Colonoscopy Rica Cesar MD Meds Allergies and Home Medications Allergies Allergy/AdvReac Type Severity Reaction Status Date / Time cat dander Allergy sneezing Verified 08/04/25 07:18 Home Medication ?Medication ?Instructions ?Recorded omega-3 fatty acids 1,000 mg 1,500 mg PO DAILY 01/27/24 capsule magnesium citrate 125 mg capsule 150 mg PO HS 04/28/24 magnesium glycinate 240 mg PO DAILY 04/28/24 tamsulosin 0.4 mg capsule 0.4 mg PO DAILY #90 tab-caps 02/12/25 zinc gluconate 30 mg tablet 15 mg PO BID 06/01/25 Current Visit Medications: Current Medications Generic Name Dose Route Start Last Admin Trade Name Freq PRN Reason Stop Dose Admin Ringer's Solution 1,000 mls @ 80 mls/hr 08/04/25 06:00 08/04/25 07:24 IV 08/04/25 23:59 80 mls/hr INFUSION JEISON Administration IV Miscellaneous Supplies 1 each 08/04/25 06:00 Iv Access IV 08/04/25 23:59 DIRECTED JEISON Sodium Chloride 0 ml 08/04/25 06:00 Normal Saline Flush 10 Ml Syr IV 08/04/25 23:59 PRN PRN Sodium Chloride 0 ml 08/04/25 06:00 Normal Saline 10 Ml Vial IJ 08/04/25 23:59 DIRECTED PRN Sterile Water 0 ml 08/04/25 06:00 Water,Injection,Sterile 10 Ml Vial IJ 08/04/25 23:59 DIRECTED PRN PFSH Active Problems Active Problems: Problem Status Onset Code Encounter for screening colonoscopy Acute Z12.11 Pre-op exam Acute Z01.818 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 Screening for HIV (human immunodeficiency virus) Acute Z11.4 Ejaculatory disorder Acute N53.19 Injury of tympanic membrane of right ear Acute S09.301A Hyperglycemia Acute R73.9 Localized osteoarthritis of right knee Acute M17.11 Rotator cuff disorder Acute M67.919 Hyperlipidemia Acute E78.5 Verruca vulgaris Acute B07.8 Tennis elbow Acute M77.10 Primary osteoarthritis of left knee Acute 03/06/16 M17.12 Other and unspecified hyperlipidemia Acute 12/26/01 E78.5 Obstructive sleep apnea Acute 09/25/16 G47.33 BPH w/o urinary obs/LUTS Acute 02/25/09 N40.0 Actinic keratosis Acute 02/25/09 L57.0 Medical History Medical History BCC (basal cell carcinoma) (~09/2019) left angle of jaw, left upper back, right upper chest Ricci's disease of left shoulder (~02/2022) H/O actinic keratosis hands/shoulders/back - 6m f/u with Dr Alexander 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 Status post arthroscopy of right knee Vasectomy Repair of inguinal hernia (10/11/15) Bilateral Colonoscopy - IV Sedation Appendectomy Tobacco Smoking/Tobacco Use Status: Never Passive smoking exposure: No Second hand exposure: No Alcohol Alcohol Intake: current Alcohol intake frequency: a few times a week Alcohol type: beer, wine and hard liquor Substance Use Substance use: Never Substance use type: does not use Vital Signs and Lab Results Vital Signs Most Recent Vital Signs in EMR: Most Recent Vital Signs Temp Pulse Resp BP Pulse Ox 36.6 C 73 16 137/94 H 96 08/04/25 07:05 08/04/25 07:05 08/04/25 07:05 08/04/25 07:05 08/04/25 07:05 Anesthesia Assessment and Plan Anesthesia History Personal History: No History of Anesthesia Complications Family History: No Family History of Anesthesia Complications Exercise Tolerance Exercise Tolerance: Metabolic Equivalents>4 Pertinent Negatives Pertinent Negatives: No Symptoms of GERD Cardiac & Pulmonary Exam Cardiac Exam: Normal S1/S2 Heart Sounds Pulmonary Exam: Clear Bilateral Breath Sounds Implantable Cardiac Device Does patient have a Pacemaker or an ICD?: No Airway Exam Known Difficult Airway: No Mallampati Class: 2 Mouth Opening: Normal (> 3cm) Thyromental Distance: Greater than 3 cm Neck Range of Motion: Full ROM Neck Circumference: Normal Teeth Condition: Normal Dentition ASA Classification ASA Score: ASA 2 Emergency Case?: No NPO Status NPO Status: NPO Clears >2 hours, Solids >8 hours Anesthesia Plan Resuscitation Status: Full Code Anesthesia Technique: General Anesthesia Airway Planned: Natural Airway Monitors Used: Standard Monitors
[2025-08-04 08:07] VITALS: BMI 26.3
[2025-08-04 08:49] VITALS: BP 133/94; PULSE 67; RESP 16; TEMP 36.4; O2SAT 96
--- NOTE | 2025-08-04 08:50 | W.PM.DSUDISC ---
Date of service: 08/04/25 Discharge Plan Disposition Patient Disposition: Home Condition: Good Discharge Details Reason For Visit: Screening colonoscopy Attending Provider: Rica Cesar Primary Care Provider: Gaurang Contreras Home Meds and New Rx's Prescriptions: Continued omega-3 fatty acids 1,000 mg capsule 1,500 mg PO DAILY zinc gluconate 30 mg tablet 15 mg PO BID tamsulosin 0.4 mg capsule 0.4 mg PO DAILY Qty: 90 3RF magnesium citrate 125 mg capsule 150 mg PO HS magnesium glycinate 118 mg magnesium capsule 240 mg PO DAILY Patient Comments: bottle says 2 capsules 240 mg Discharge Instructions Instructions: Diverticulosis (DC) Additional Instructions: Your colonoscopy went well today. You did have evidence of diverticulosis or small outpouchings in the colon. Otherwise your colonoscopy was normal. You should have a repeat colonoscopy in 10 years. Please contact the surgery office if you have questions or concerns. 1. If tolerated, consume a soft, low fiber diet for 1-2 days. 2[address] Do not drive, drink alcohol, operate machinery, make critical decisions, or do activities that require coordination or balance for 24 hours. 3. Because air was put into your colon during the procedure, expelling air from your rectum (passing gas or farting) is normal. 4. You may not have a bowel movement for 1-3 days because of the colonoscopy prep. This is normal. 5. Go directly to the emergency room if you notice any of the following: Develop chills (warm to touch), or if you have a thermometer and your temperature is above 101 Difficulty breathing or difficultly swallowing Persistent vomiting Severe abdominal pain, other than gas cramps Severe chest pain Black, tarry stools Any bleeding ? exceeding one tablespoon 6. Call your physician if the site where your intravenous was started becomes red, swollen, painful, and warm to touch. 7. Your physician has reviewed your pre-procedure medications. Please continue to take those medications as previously ordered. You will be given specific information/education regarding any changes to your medications before leaving. Activity:: Activity as Tolerated Diet:: As Tolerated Discharge Orders Discharge Orders: Discharge Order (Routine); Ordered 08/04/25 Ordered By: Rica Cesar
--- NOTE | 2025-08-04 08:52 | COLE_ITS ---
Date of service: 08/04/25 Time of Service: 08:52 Colonoscopy Report Date of procedure: 08/04/25 Pre-op diagnosis general: Screening colonoscopy Post-op diagnosis procedure note: same Procedure: Colonoscopy Surgeon: Rica Cesar Anesthesia Type: General:No Airway Estimated blood loss (mL): 1 Pathology: none sent Complications: None Disposition: PACU Indications: Patient is a 70-year-old male who presents for a screening colonoscopy. This procedure is being performed in anticipation of potential kidney transplant donation. Prep: Miralax/Dulcolax Procedure Start Time: :31 Procedure End Time: :45 Retraction Time: 9 Findings: Normal screening colonoscopy. Evidence of right sided diverticulosis. Procedure Description: Informed consent was obtained. The patient was taken to the endoscopy suite and placed in the left lateral decubitus position. After adequate intravenous sedation, digital rectal exam was performed, which was normal. A colonoscope was inserted into the rectum and easily negotiated to the cecum. The ileocecal valve and appendiceal orifice were identified. The entire colonic mucosa was then carefully circumferentially inspected upon slow withdrawal of the scope. The cecum, ascending, transverse, and descending colon were all normal. In the ascending colon there was evidence of diverticulosis. Retroflexion in the rectum was unremarkable. The patient tolerated the procedure well with no complic ations. Postoperatively, the patient was transferred to the recovery room in stable condition. [place] Bowel Prep Living[place] Bowel Prep Right Colon: 3 Left Colon: 3 Transverse Colon: 3 Total Score: 9
--- NOTE | 2025-08-04 09:15 | W.ANESPOSTOP ---
Postoperative Evaluation Date, Time and Location Date Performed: 08/04/25 Time Performed: 09:15 Patient Location: Day Surgery Unit Vital Signs Most Recent Imported Vital Signs: Most Recent Vital Signs Temp Pulse Resp BP Pulse Ox 36.4 C L 67 16 133/94 H 96 08/04/25 08:49 08/04/25 08:49 08/04/25 08:49 08/04/25 08:49 08/04/25 08:49 Pain Score Most Recent Pain Score: Most Recent Pain Score Pain Level 0 08/04/25 08:49 Assessment Mental Status: Awake (Alert & Oriented to Patient Baseline) Airway and Respiratory Function: Patent airway with normal (patient baseline) respiratory exam Cardiovascular Function: Hemodynamically Stable Hydration Status: Adequately Hydrated Nausea & Vomiting: No Nausea or Vomiting Pain: Pt. Denies Any Pain Peripheral Nerve Block: Patient did not receive a nerve block
[2025-08-04 09:19] VITALS: BP 158/95; PULSE 62; RESP 16; TEMP 36.3; O2SAT 98
== END 2025-08-04 10:03 | disposition home or self-care (01) ==
PROVIDERS: PCP Nurse Practitioner Family; Visit Provider Student in an Organized Health Care Education/Training Program
PROC: 0DJD8ZZ Inspection of Lower Intestinal Tract, Via Natural or Artificial Opening Endoscopic (ICD-10-PCS; CPT 45378; principal; 2025-08-04 08:30)
DX: Z12.11 Encounter for screening for malignant neoplasm of colon (principal); K57.30 Diverticulosis of large intestine without perforation or abscess without bleeding
CPT/HCPCS: G0121; J2704

== ENCOUNTER → 2025-09-21 09:49 | Outpatient (CLI) | payer MEDICARE, SELFPAY ==
--- NOTE | 2025-09-21 10:16 | DI.RAD_ITS ---
Exam(s) XR KNEE RT 4V AP,LAT,DADA,PAT EXAM: XR KNEE RT 4V AP,LAT,DADA,PAT CLINICAL HISTORY: OA R KNEE M17.11. TECHNIQUE: 2D digital imaging was performed of the right knee. Four views obtained. Merchant, AP, lateral and PA tunnel views were obtained. COMPARISON: CR XR KNEE RT 3V AP,LAT,DADA from 03/13/2023 FINDINGS: BONES: No acute fracture is present. No bony destructive lesion is seen. JOINTS: There is marked narrowing of the medial femoral tibial joint. There osteophytes in the medial femoral tibial and patellofemoral joints. There is a small joint effusion. No joint effusion is seen. SOFT TISSUE: Normal. IMPRESSION: Marked osteoarthritis of the right knee. DATA REPOSITORY: RADIATION DOSE DELIVERED:
== END ==
LOC: DI 09:49
PROVIDERS: PCP Nurse Practitioner Family; Visit Provider Nurse Practitioner Family
DX: M17.11 Unilateral primary osteoarthritis, right knee (principal)
CPT/HCPCS: 73564